=== PATIENT | female | born 1970 | race Caucasian/White ===

== ENCOUNTER 2019-06-14 07:19 | Emergency (ER) | payer BC, MEDICAID ==
[~2019-06-14] VITALS: Ht 152.4 cm; Wt 81.6 kg
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
[2019-06-14] MEDS ORDERED: IBUPROFEN 600 MG TABLET PO ONE (08:00)
[2019-06-14] MEDS ORDERED: IBUPROFEN 600 MG TABLET ONE (08:11)
--- NOTE | 2019-06-14 09:10 | NUR ---
DC, RX (INCLUDING PRECAUTIONS) AND FOLLOW UP INSTRUCTIONS GIVEN AND EXPLAINED TO PATIENT AND DAUGHTER WHO STATE THEY UNDERSTAND ALL INSTRUCTIONS.
== END 2019-06-14 09:13 | disposition home or self-care (01) ==
LOC: ER 07:19
DX: S50.12XA Contusion of left forearm, initial encounter (principal); S60.042A Contusion of left ring finger without damage to nail, initial encounter; V49.9XXA Car occupant (driver) (passenger) injured in unspecified traffic accident, initial encounter; Y93.89 Activity, other specified; Y92.89 Other specified places as the place of occurrence of the external cause; Y99.8 Other external cause status
CPT/HCPCS: 73140; A4663